=== PATIENT | female | born 1990 | race Two or more races ===

== ENCOUNTER → 2019-07-01 16:40 | Outpatient (CLI) | payer OTHER, SELFPAY | PROVIDERS: Referring Provider Advanced Practice Midwife; Visit Provider Advanced Practice Midwife | DX: Z13.228 Encounter for screening for other metabolic disorders (principal) | CPT/HCPCS: 36415 ==

== ENCOUNTER 2019-10-14 10:30 | Outpatient (RCR) | payer MEDICAID, SELFPAY | END 2019-10-23 23:59 | LOC: DC 10:30 | PROVIDERS: Visit Provider Obstetrics & Gynecology | DX: Z71.3 Dietary counseling and surveillance (principal); O24.410 Gestational diabetes mellitus in pregnancy, diet controlled | CPT/HCPCS: 97802; G0108 ==

== ENCOUNTER 2019-10-29 07:56 | Outpatient (RCR) | payer MEDICAID, SELFPAY | END 2019-11-21 23:59 | LOC: DC 07:56 | PROVIDERS: Visit Provider Obstetrics & Gynecology | DX: Z71.3 Dietary counseling and surveillance (principal); O24.410 Gestational diabetes mellitus in pregnancy, diet controlled ==

== ENCOUNTER 2019-11-08 19:05 | Inpatient (IN) | payer MEDICAID, SELFPAY ==
[2019-11-08 20:01] LABS: Bedside Glucose 166 mg/dL (70-110)
[2019-11-08] MEDS: Lactated Ringers 1,000 ML 50 ML IV (20:05)
[2019-11-08 20:31] LABS: Absolute Lymphocyte Count 1.55 X10^3/uL (0.83-4.51); Absolute Neutrophil Count 8.1 X10^3/uL (2.0-7.7); Basophil# 0.01 X10^3/uL; Basophil% 0.1 % (0-1); Eosinophil# 0.07 X10^3/uL; Eosinophils% 0.7 % (0-5); Hematocrit 34.2 % (37-47); Hemoglobin 11.4 g/dL (12.0-15.0); Lymphocyte # 1.55 X10^3/ul (4.0); Lymphocyte % 14.7 % (19-41); Mean Corp Hgb Conc 33.3 g/dL (32-36); Mean Corpuscular Hgb 28.6 pg (27.0-32.0); Mean Corpuscular Volume 85.9 fL (81-99); Mean Platelet Vol. 8.7 fl (6.2-12.0); Monocyte# 0.77 X10^3/uL; Monocyte% 7.3 % (0-10); NRBC Flagged by Analyzer 0 % (0-5); Neutrophil # 8.06 X10^3/uL (2.7-7.7); Neutrophil % 76.7 % (47-70); Platelet Count 343 K/mm3 (150-450); RBC Distribution Width CV 13.2 % (11.6-14.6); Red Blood Count 3.98 M/mm3 (4.2-5.4); White Blood Count 10.5 K/mm3 (4.4-11.0)
[2019-11-08] MEDS: miSOPROStol 25 MCG TABLET VAGINAL (20:59)
[2019-11-08 21:09] VITALS: BMI 30.9
[2019-11-08 21:21] LABS: Bedside Glucose 135 mg/dL (70-110)
[2019-11-08] MEDS: Dext 5%-0.45% NS 1,000 ML 125 ML IV (21:51)
[2019-11-08] MEDS: 0.9% Saline Lock 10 ML Syringe IV (21:56)
[2019-11-08 22:16] LABS: Bedside Glucose 127 mg/dL (70-110)
[2019-11-08 22:56] LABS: Bedside Glucose 83 mg/dL (70-110)
[2019-11-09] LABS: Bedside Glucose 60 mg/dL (70-110)
[2019-11-09 00:20] LABS: Bedside Glucose 56 mg/dL (70-110)
[2019-11-09 00:46] LABS: Bedside Glucose 64 mg/dL (70-110)
[2019-11-09] MEDS: miSOPROStol 50 MCG TABLET VAGINAL ×2 (01:02→07:52)
[2019-11-09 01:15] LABS: Bedside Glucose 99 mg/dL (70-110)
[2019-11-09 02:06] LABS: Bedside Glucose 102 mg/dL (70-110)
[2019-11-09] MEDS: Oxymetazoline 0.05% 1 SPRAY SPRAY.BTL 2 SPRAY NASAL ×3 (03:48→20:19)
[2019-11-09 06:11] LABS: Bedside Glucose 90 mg/dL (70-110)
[2019-11-09] MEDS: Lactated Ringers 500 ML 999 ML IV ×2 (06:51→20:17)
[2019-11-09 10:00] LABS: Bedside Glucose 72 mg/dL (70-110)
[2019-11-09 12:01] LABS: Bedside Glucose 68 mg/dL (70-110)
--- NOTE | 2019-11-09 12:27 | HP.PCM_ITS ---
- Problem List (1) 37 weeks gestation of Status: Acute (2) Primiparity Status: Acute (3) GDM, class A2 Status: Acute (4) Late care affecting Status: Acute (5) History of depression Status: Acute (6) LIS (generalized anxiety disorder) Status: Acute History Date of Admission: 11/08/19 Final POOJA: 11/27/19 Gestational age: 37 Weeks and 3 Days History of this : This is a 29 year-old, G 2, P 0010, at 37 weeks gestational age who presents for a scheduled induction of labor for poorly controlled gestational diabetes on insulin. Surgical History: Surgical History (Last Updated 11/09/19 @ 12:30 by Ellie Rodriguez DO) History of D&C Z98.890 History of cholecystectomy Z90.49 History of colposcopy Z98.890 Allergies morphine Allergy (Verified 11/08/19 20:33) Hives peanut Allergy (Verified 11/08/19 20:33) Hives pineapple Allergy (Verified 11/08/19 20:33) Hives tomato Allergy (Verified 11/08/19 20:33) Hives Home Medications: Home Medications Albuterol Inhaler [Ventolin Hfa] 11/08/19 Insulin Lispro [Humalog Kwikpen] 6 unit SQ BID 11/08/19 Insulin NPH Hum/Reg Insulin Hm [Humulin 70-30 Vial] 24 unit SQ BID 11/08/19 Magnesium 30 mg PO 11/08/19 Oxymetazoline HCl [Afrin] 30 ml NS 11/08/19 Pantoprazole Sodium [Protonix] 20 mg PO DAILY 11/08/19 Tablet 11/08/19 Smoking Status: Former smoker NST - FHR Rate Baby A Baseline: 135 Variability:: Moderate Accelerations:: 15 x 15 Decelerations:: None NST Reactive:: Yes FHR Category:: Category I Uterine Activity:: Ctx q 2-3 min History Past Pregnancies: Past Pregnancies Delivery Date Name GA/ Weeks Outcome Route Wt Sex Labor Length Anesthesia Delivery Location Provider FOB Labs: GBS positive See [facility] records Expected Infant Delivery Method: Spontaneous Vaginal Review of Systems Constitutional: Denies: Fever HEENT: Denies: Head Aches Cardiovascular: Denies: Chest Pain Respiratory: Denies: Shortness of Breath Gastrointestinal: Denies: Abdominal Pain Psychiatric: Reports: Anxiety, Depression Physical Exam General: Alert, No apparent distress HEENT: Atraumatic Abdomen: Soft, Non Tender, Gravid Extremities:: No edema Neurological: Neuro grossly intact FAMILY PROGRAM SPECIALIST: Normal external genitalia Estimated gestational size: Appropriate for gestational size Presentation: Cephalic Assessment/Plan All Active Problems 37 weeks gestation of (Acute) Primiparity (Acute) GDM, class A2 (Acute) Late care affecting (Acute) History of depression (Acute) LIS (generalized anxiety disorder) (Acute) This is a 29 year-old, G 2, P 0010, at 37 weeks gestational age who presents for scheduled IOL for uncontrolled A2GDM on insulin. - Admit for routine intrapartum care - Diabetic protocol started - GBS positive - Cytotec induction - Epidural prn - Fetus palpates AGA and pelvis adequate. EFW 66% on 3rd trimester growth US
[2019-11-09 13:01] LABS: Bedside Glucose 74 mg/dL (70-110)
[2019-11-09] MEDS: miSOPROStol 50 MCG TABLET PO (14:07)
[2019-11-09] MEDS: Ondansetron 4 MG/2 ML Vial IV (15:15)
[2019-11-09 16:26] LABS: Bedside Glucose 106 mg/dL (70-110)
[2019-11-09 18:21] LABS: Bedside Glucose 81 mg/dL (70-110)
[2019-11-09] MEDS: Lactated Ringers 1,000 ML 50 ML IV (18:31)
[2019-11-09] MEDS: Acetaminophen 325 MG Tablet PO (18:32)
--- NOTE | 2019-11-09 19:20 | PCM.PN.BLA ---
Progress Note External os of cvx 1 cm, internal os unable to be reached due to pt intolerance. Intracervical mckeon placed in usual fashion. Category 1 tracing. Will start pitocin at 1999 with mckeon. Discussed pain control.
--- NOTE | 2019-11-09 19:58 | NURSING ---
spoke with pharmacy and they state to add another order for pitocin in order for it to be properly scanned. this RN leaving other duplicate pitocin order in computer, per pharmacy request.
[2019-11-09] MEDS: Oxytocin 30 units/NS 500 ml 30 UNITS/500 ML IV.SOLN IV (20:19)
[2019-11-09] MEDS: fentaNYL-bupivacaine (epidural) 100 ML BAG EPIDURAL (20:59)
[2019-11-09 22:06] LABS: Bedside Glucose 79 mg/dL (70-110)
[2019-11-10] MEDS: Lactated Ringers 1,000 ML 200 ML IV ×2 (01:27→06:14)
[2019-11-10] MEDS: fentaNYL-bupivacaine (epidural) 100 ML BAG EPIDURAL ×2 (01:27→06:44)
[2019-11-10 01:51] LABS: Bedside Glucose 79 mg/dL (70-110)
[2019-11-10] MEDS: Lactated Ringers 500 ML 999 ML IV (04:26)
[2019-11-10 05:26] LABS: Bedside Glucose 75 mg/dL (70-110)
--- NOTE | 2019-11-10 05:39 | PCM.PN.BLA ---
Progress Note Called for late decelerations. Pitocin gtt turned off. Delayed entry. At bedside to examine pt. Cvx 9.5/100/0. No membranes palpated. FSE placed. FHT now Category 1. Will restart Pit gtt.
[2019-11-10 06:41] LABS: Bedside Glucose 78 mg/dL (70-110)
[2019-11-10 07:41] LABS: Bedside Glucose 75 mg/dL (70-110)
[2019-11-10] MEDS: Oxytocin 30 units/NS 500 ml 30 UNITS/500 ML IV.SOLN 334 UNITS IV (08:21)
--- NOTE | 2019-11-10 08:49 | PCM.OPRPT ---
Vaginal Delivery Maternal Presentation: Medically Indicated Induction Amniotic Fluid Description: Clear Final POOJA: 11/27/19 Gestational age: 37 Weeks and 4 Days Date of Procedure: 11/10/19 Pre-Operative Diagnosis: labor Post-Operative Diagnosis: same Surgery/ Procedure Performed: Spontaneous Vaginal Delivery Type of Anesthesia: Epidural Description of Procedure: A vigorous male was delivered LAY over first-degree perineal laceration. A loose nuchal cord ?1 was easily reduced. The remainder the infant was delivered with maternal pushing and gentle traction only in less than 15 seconds. The Pitocin infusion was initiated for active management of the third stage. The cord was clamped and cut after 1 minute. The was attended to by the waiting nursing staff. The placenta was delivered spontaneously and intact. The cervix and vagina were intact. The first-degree perineal laceration was repaired with 3-0 Vicryl suture in a running standard fashion. Sponge and needle counts were correct. A vaginal sweep was completed by me. Presentation: LAY Placental Delivery Description: Spontaneous Placenta Disposition: [facility] Cord Vessel Description: 3 Vessels Nuchal Cord Compression: Without compression Cord Entanglement: Around neck x 1, loose Drain: Sethi to straight drain Estimated Blood Loss: 300 A gender: Male (1 minute): 9 (5 minute): 9 Episiotomy Description: None Laceration: 1st degree - perineal Medications given after delivery: IV Pitocin Complications: None
[2019-11-10] MEDS: Naproxen 250 MG Tablet 500 MG PO ×2 (09:45→21:37)
[2019-11-10 10:51] LABS: Bedside Glucose 71 mg/dL (70-110)
[2019-11-10 12:10] VITALS: BP 92/50; PULSE 104; RESP 16; TEMP 37.1; O2SAT 96
[2019-11-10] MEDS: 0.9% Saline Lock 10 ML Syringe IV ×2 (12:23→15:04)
[2019-11-10] MEDS: Oxymetazoline 0.05% 1 SPRAY SPRAY.BTL 2 SPRAY NASAL (12:24)
[2019-11-10] MEDS: Cefazolin 2 GM in 0.9% Normal Saline 100 ML IV (13:24)
[2019-11-10] MEDS: Acetaminophen 500 MG Tablet 1000 MG PO (15:24)
[2019-11-10 16:20] VITALS: BP 102/59; PULSE 94; RESP 16; TEMP 36.8; O2SAT 97
[2019-11-10 19:50] VITALS: BP 106/64; PULSE 84; RESP 16; TEMP 37.1
[2019-11-10 23:29] VITALS: BP 113/61; PULSE 89; RESP 16; TEMP 36.6
[2019-11-11] MEDS: Acetaminophen 500 MG Tablet 1000 MG PO ×2 (02:51→13:58)
[2019-11-11] MEDS: guaiFENesin Dm 10 ML UDC PO ×2 (02:51→09:10)
[2019-11-11] MEDS: Sodium Chloride 0.65% 1 SPRAY SPRAY.BTL 2 SPRAY NASAL (02:52)
[2019-11-11 03:54] VITALS: BP 107/63; PULSE 85; RESP 16; TEMP 36.6
[2019-11-11 06:35] LABS: Bedside Glucose 70 mg/dL (70-110)
[2019-11-11] MEDS: Naproxen 250 MG Tablet 500 MG PO (06:35)
[2019-11-11 08:30] VITALS: BP 100/64; PULSE 78; RESP 16; TEMP 36.4; O2SAT 98
--- NOTE | 2019-11-11 08:31 | PN.OBGYN_ITS ---
<DiogoFederica - Last Filed: 11/11/19 08:31> Patient Problems: Active and Suspected Problems 37 weeks gestation of (Acute) Primiparity (Acute) GDM, class A2 (Acute) Late care affecting (Acute) History of depression (Acute) LIS (generalized anxiety disorder) (Acute) Subjective: Pain well controlled. Average lochia. - Physical Exam Vitals/I&O's: Vital Signs Temp Pulse Resp BP Pulse Ox 97.9 F 85 16 107/63 97 11/11/19 03:54 11/11/19 03:54 11/11/19 03:54 11/11/19 03:54 11/10/19 16:20 Oxygen Delivery Method Room Air Weight: 72 kg Body Mass Index (BMI) 30.9 Intake and Output for Last 24 Hours 11/09/19 11/10/19 11/11/19 23:59 23:59 23:59 Intake Total 2426.80 / 2426.80 3957.84 / 3957.84 Output Total 2650 / 2650 350 / 350 Balance 2426.80 / 2426.80 1307.84 / 1307.84 -350 / -350 General: Alert, Cooperative, No apparent distress Laboratory Results 11/10/19 09:15: POC Glucose 71 11/11/19 06:28: POC Glucose 70 Current Medications Acetaminophen (Tylenol) 1,000 mg PO Q8H PRN PRN PRN Reason: Pain Score 1-3/10 Last Admin: 11/11/19 02:51 Dose: 1,000 mg Documented by: Bisacodyl (Dulcolax) 10 mg RECTAL UD PRN PRN Reason: If no BM Dibucaine (Dibucaine) 1 applic TOPICAL TID PRN PRN; Protocol PRN Reason: Discomfort Glucagon () 1 mg IM .X1 PRN PRN Reason: Hypoglycemia Guaifenesin (Robitussin Dm) 10 ml PO Q6H PRN PRN PRN Reason: COUGH Last Admin: 11/11/19 02:51 Dose: 10 ml Documented by: Hydrocortisone (Hytone) 1 applic TOPICAL TID PRN PRN; Protocol PRN Reason: Discomfort Dextrose (Dextrose 10%-Water) 250 mls @ 999 mls/hr IV X1 PRN; Protocol PRN Reason: HYPOGLYCEMIA Methylergonovine Maleate (Methergine) 0.2 mg IM X1 PRN PRN Reason: Excess bleeding/uterine atony Naproxen (Naprosyn) 500 mg PO Q8H PRN PRN PRN Reason: Pain Score 1-3/10 Last Admin: 11/11/19 06:35 Dose: 500 mg Documented by: Ondansetron HCl (Zofran) 4 mg IV Q4H PRN PRN PRN Reason: Nausea Oxymetazoline HCl (Afrin (Bkc)) 2 spray NASAL Q8H PRN PRN PRN Reason: NASAL CONGESTION Last Admin: 11/10/19 12:24 Dose: 2 spray Documented by: Prochlorperazine Edisylate (Compazine Iv) 10 mg IV Q6H PRN PRN PRN Reason: NAUSEA/VOMITING Senna/Docusate Sodium (Senokot-S, Sharmin-Colace) 1 - 2 tablet PO DAILY PRN PRN PRN Reason: Constipation Simethicone (Mylicon) 80 mg PO PCHS PRN PRN Reason: Indigestion/Stomach pain Sodium Chloride () 5 - 15 ml IV UD PRN PRN Reason: SALINE FLUSH Last Admin: 11/10/19 15:04 Dose: 10 ml Documented by: Sodium Chloride ([place] Nasal [place]) 2 spray NASAL Q2H PRN PRN PRN Reason: NASAL DRYNESS Last Admin: 11/11/19 02:52 Dose: 2 spray Documented by: Medical Necessity - Tobacco Use Smoking Status: Former smoker Assessment/Plan All Active Problems 37 weeks gestation of (Acute) Primiparity (Acute) GDM, class A2 (Acute) Late care affecting (Acute) History of depression (Acute) LIS (generalized anxiety disorder) (Acute) PPD day #1 status post vaginal delivery Patient is doing well. Routine care for her . Likely discharge home t omorrow. <Ellie Rodriguez - Last Filed: 11/11/19 08:39> Subjective: Lightheadedness, dizziness, chest pain, shortness of breath, nausea, vomiting, leg pain. - Physical Exam Vitals/I&O's: Vital Signs Temp Pulse Resp BP Pulse Ox 97.9 F 85 16 107/63 97 11/11/19 03:54 11/11/19 03:54 11/11/19 03:54 11/11/19 03:54 11/10/19 16:20 Oxygen Delivery Method Room Air Weight: 158 lb 11.725 oz Body Mass Index (BMI) 30.9 Intake and Output for Last 24 Hours 11/09/19 11/10/19 11/11/19 23:59 23:59 23:59 Intake Total 2426.80 / 2426.80 3957.84 / 3957.84 Output Total 2650 / 2650 350 / 350 Balance 2426.80 / 2426.80 1307.84 / 1307.84 -350 / -350 Abdomen: Soft, Non Tender, - - FF@U-1 Extremities: No edema, No Calf Tenderness Skin: No rashes Neurological: Neuro grossly intact Psych/Mental Status: Normal Affect, Appropriate Laboratory Results 11/10/19 09:15: POC Glucose 71 11/11/19 06:28: POC Glucose 70 Current Medications Acetaminophen (Tylenol) 1,000 mg PO Q8H PRN PRN PRN Reason: Pain Score 1-3 Last Admin: 11/11/19 02:51 Dose: 1,000 mg Documented by: Bisacodyl (Dulcolax) 10 mg RECTAL UD PRN PRN Reason: If no BM Dibucaine (Dibucaine) 1 applic TOPICAL TID PRN PRN; Protocol PRN Reason: Discomfort Glucagon () 1 mg IM .X1 PRN PRN Reason: Hypoglycemia Guaifenesin (Robitussin Dm) 10 ml PO Q6H PRN PRN PRN Reason: COUGH Last Admin: 11/11/19 02:51 Dose: 10 ml Documented by: Hydrocortisone (Hytone) 1 applic TOPICAL TID PRN PRN; Protocol PRN Reason: Discomfort Dextrose (Dextrose 10%-Water) 250 mls @ 999 mls/hr IV X1 PRN; Protocol PRN Reason: HYPOGLYCEMIA Methylergonovine Maleate (Methergine) 0.2 mg IM X1 PRN PRN Reason: Excess bleeding/uterine atony Naproxen (Naprosyn) 500 mg PO Q8H PRN PRN PRN Reason: Pain Score 1-3/10 Last Admin: 11/11/19 06:35 Dose: 500 mg Documented by: Ondansetron HCl (Zofran) 4 mg IV Q4H PRN PRN PRN Reason: Nausea Oxymetazoline HCl (Afrin (Bkc)) 2 spray NASAL Q8H PRN PRN PRN Reason: NASAL CONGESTION Last Admin: 11/10/19 12:24 Dose: 2 spray Documented by: Prochlorperazine Edisylate (Compazine Iv) 10 mg IV Q6H PRN PRN PRN Reason: NAUSEA/VOMITING Senna/Docusate Sodium (Senokot-S, Sharmin-Colace) 1 - 2 tablet PO DAILY PRN PRN PRN Reason: Constipation Simethicone (Mylicon) 80 mg PO PCHS PRN PRN Reason: Indigestion/Stomach pain Sodium Chloride () 5 - 15 ml IV UD PRN PRN Reason: SALINE FLUSH Last Admin: 11/10/19 15:04 Dose: 10 ml Documented by: Sodium Chloride ([place] Nasal [place]) 2 spray NASAL Q2H PRN PRN PRN Reason: NASAL DRYNESS Last Admin: 11/11/19 02:52 Dose: 2 spray Documented by:
--- NOTE | 2019-11-11 13:45 | CASEMGMT ---
Social Work Labor and Delivery Unit Consult received due to maternal history of trauma. Chart reviewed and noted that mother of baby (MOB) also has history of depression, anxiety, late care and is a first time mother. Noted that father of baby (FOB) with history of substance use issues, reportedly in recovery. Met with MOB and FOB in room and introduced to self, that meets with many families on the unit, goes over resources and addresses mood and anxiety issues. Did not address MOB's trauma history in front of the FOB, as this short story writer uncertain what MOB has shared with the FOB previously. Talked with MOB and FOB together and gathered some basic information for assessment, and just getting to the point of addressing mood and anxiety issue when a visitor arrived and came into the room with a gift. MOB appeared as though she wanted to visit with this person, and alluded that had been on the phone with this person when this short story writer was arriving to the room. This short story writer agreed to step out to allow for a visit. Educated MOB that this short story writer would be back later today or tomorrow morning. MOB voiced agreement. During time that child welfare social worker in the room, which was about [id number] MOB as pleasant and cooperative, but did cry intermittently. MOB cried when talking about disappointment that baby is not feeding as well today as had yesterday. Supportive listening offered. Observed that FOB would rub the MOB's back when MOB started to cry. Observed FOB to hold the baby, and was gentle. MOB also held baby, was gentle, and attempted to cup feed the baby at one point. Plan: Will meet with MOB again today if time allows, otherwise will meet with MOB on 11.12.2019. MOB is aware and voices agreement with plan. -DUNG Pedroza, CASHIER AND SALESPERSON
[2019-11-11 14:00] VITALS: BP 109/65; PULSE 97; RESP 16; TEMP 36.4
[2019-11-11 20:50] VITALS: BP 107/72; PULSE 76; RESP 16; TEMP 36.7
[2019-11-11] MEDS: guaiFENesin 600 MG Tablet PO (21:01)
[2019-11-12] MEDS: Naproxen 250 MG Tablet 500 MG PO ×2 (00:30→09:03)
[2019-11-12 02:45] VITALS: BP 113/65; PULSE 83; RESP 16; TEMP 36.5
[2019-11-12 08:17] VITALS: BP 114/70; PULSE 81; RESP 16; TEMP 36.9
--- NOTE | 2019-11-12 08:35 | PCM.PN.OB ---
Patient Problems: Active and Suspected Problems 37 weeks gestation of (Acute) Primiparity (Acute) GDM, class A2 (Acute) Late care affecting (Acute) History of depression (Acute) LIS (generalized anxiety disorder) (Acute) Subjective: No complaints - Physical Exam Vitals/I&O's: Vital Signs Temp Pulse Resp BP Pulse Ox 98.4 F 81 16 114/70 98 11/12/19 08:17 11/12/19 08:17 11/12/19 08:17 11/12/19 08:17 11/11/19 08:30 Oxygen Delivery Method Room Air Weight: 158 lb 11.725 oz Body Mass Index (BMI) 30.9 Intake and Output for Last 24 Hours 11/10/19 11/11/19 11/12/19 23:59 23:59 23:59 Intake Total 3957.84 / 3957.84 Output Total 2650 / 2650 350 / 350 Balance 1307.84 / 1307.84 -350 / -350 General: Alert, Oriented x3 Abdomen: Soft, Non Tender, Non-Distended - ff mid & below umb Extremities: No Calf Tenderness Current Medications Acetaminophen (Tylenol) 1,000 mg PO Q8H PRN PRN PRN Reason: Pain Score 1-3/10 Last Admin: 11/11/19 13:58 Dose: 1,000 mg Documented by: Bisacodyl (Dulcolax) 10 mg RECTAL UD PRN PRN Reason: If no BM Dibucaine (Dibucaine) 1 applic TOPICAL TID PRN PRN; Protocol PRN Reason: Discomfort Glucagon () 1 mg IM .X1 PRN PRN Reason: Hypoglycemia Guaifenesin (Robitussin Dm) 10 ml PO Q6H PRN PRN PRN Reason: COUGH Last Admin: 11/11/19 09:10 Dose: 10 ml Documented by: Guaifenesin (Mucinex) 600 mg PO BID GALLO Last Admin: 11/11/19 21:01 Dose: 600 mg Documented by: Hydrocortisone (Hytone) 1 applic TOPICAL TID PRN PRN; Protocol PRN Reason: Discomfort Dextrose (Dextrose 10%-Water) 250 mls @ 999 mls/hr IV X1 PRN; Protocol PRN Reason: HYPOGLYCEMIA Methylergonovine Maleate (Methergine) 0.2 mg IM X1 PRN PRN Reason: Excess bleeding/uterine atony Naproxen (Naprosyn) 500 mg PO Q8H PRN PRN PRN Reason: Pain Score 1-3/10 Last Admin: 11/12/19 00:30 Dose: 500 mg Documented by: Ondansetron HCl (Zofran) 4 mg IV Q4H PRN PRN PRN Reason: Nausea Oxymetazoline HCl (Afrin (Bkc)) 2 spray NASAL Q8H PRN PRN PRN Reason: NASAL CONGESTION Last Admin: 11/10/19 12:24 Dose: 2 spray Documented by: Prochlorperazine Edisylate (Compazine Iv) 10 mg IV Q6H PRN PRN PRN Reason: NAUSEA/VOMITING Senna/Docusate Sodium (Senokot-S, Sharmin-Colace) 1 - 2 tablet PO DAILY PRN PRN PRN Reason: Constipation Simethicone (Mylicon) 80 mg PO PCHS PRN PRN Reason: Indigestion/Stomach pain Sodium Chloride () 5 - 15 ml IV UD PRN PRN Reason: SALINE FLUSH Last Admin: 11/10/19 15:04 Dose: 10 ml Documented by: Sodium Chloride ([place] Nasal [place]) 2 spray NASAL Q2H PRN PRN PRN Reason: NASAL DRYNESS Last Admin: 11/11/19 02:52 Dose: 2 spray Documented by: Medical Necessity - Tobacco Use Smoking Status: Former smoker Assessment/Plan All Active Problems 37 weeks gestation of (Acute) Primiparity (Acute) GDM, class A2 (Acute) Late care affecting (Acute) History of depression (Acute) LIS (generalized anxiety disorder) (Acute) PPD#2 D/c home GDM - BS normal off insulin. Patient to continue checking BS 1-2 times per day & call with elevated BS.
--- NOTE | 2019-11-12 08:37 | DCINST_ITS ---
Discharge Diet: No Restrictions Discharge Activity: May Drive, May Shower May resume sexual activity in: 6 weeks Weight Bearing Status: Weight bearing as tolerated Additional Instructions: If you experience any of the following, contact your healthcare provider. * Bleeding that soaks a pad every hour for 2 hours * Fever 100.4 or higher * Unrelieved incision or abdominal pain * Swelling, redness, discharge or bleeding from your incision or episiotomy site * Your incision begins to separate * Problems urinating (including inability to urinate or burning while urinating). * Visual changes * Severe headache * Flu-like symptoms * Pain or redness in one of both of your breasts * Pain, warmth, tenderness or swelling in your legs, especially the calf area * Frequent nausea and vomiting * Symptoms of depression or anxiety If you experience any of the following, call 911 or go to the nearest Emergency Room. * Chest pain * Problems breathing * Seizure activity * Partial or complete paralysis of a body part, slurred speech, weakness or drooping of the face, or a sudden inability to walk or hold your balance * Please check your blood glucose levels after biggest meal of the day. Also c heck fasting glucose at least every other day. Call the office if levels are elevated. Anabell bring glucose log to 2 week check. Allergies/Adverse Reactions: Allergies morphine Allergy (Verified 11/08/19 20:33) Hives peanut Allergy (Verified 11/08/19 20:33) Hives pineapple Allergy (Verified 11/08/19 20:33) Hives tomato Allergy (Verified 11/08/19 20:33) Hives Medications to take at Discharge Albuterol Inhaler [Ventolin Hfa] 11/08/19 Magnesium 30 mg PO 11/08/19 Pantoprazole Sodium [Protonix] 20 mg PO DAILY 11/08/19 Tablet 11/08/19 Acetaminophen [Tylenol] 1,000 mg PO Q8H PRN PRN tablet 11/12/19 Naproxen [Naprosyn] 500 mg PO Q8H PRN PRN tablet 11/12/19 Primary Care Physician: Care Physician,No Primary [Primary Care Provider] - Test Results: Test results from this visit will be discussed in further detail at your follow- up appointment, if applicable.
--- NOTE | 2019-11-12 08:37 | PCM.DCVAG ---
Discharge Diet: No Restrictions Discharge Activity: May Drive, May Shower May resume sexual activity in: 6 weeks Weight Bearing Status: Weight bearing as tolerated Additional Instructions: If you experience any of the following, contact your healthcare provider. Bleeding that soaks a pad every hour for 2 hours Fever 100.4 or higher Unrelieved incision or abdominal pain Swelling, redness, discharge or bleeding from your incision or episiotomy site Your incision begins to separate Problems urinating (including inability to urinate or burning while urinating). Visual changes Severe headache Flu-like symptoms Pain or redness in one of both of your breasts Pain, warmth, tenderness or swelling in your legs, especially the calf area Frequent nausea and vomiting Symptoms of depression or anxiety If you experience any of the following, call 911 or go to the nearest Emergency Room. Chest pain Problems breathing Seizure activity Partial or complete paralysis of a body part, slurred speech, weakness or drooping of the face, or a sudden inability to walk or hold your balance Please check your blood glucose levels after biggest meal of the day. Also check fasting glucose at least every other day. Call the office if levels are elevated. Anabell bring glucose log to 2 week check. Allergies/Adverse Reactions: Allergies morphine Allergy (Verified 11/08/19 20:33) Hives peanut Allergy (Verified 11/08/19 20:33) Hives pineapple Allergy (Verified 11/08/19 20:33) Hives tomato Allergy (Verified 11/08/19 20:33) Hives Medications to take at Discharge Albuterol Inhaler [Ventolin Hfa] 11/08/19 Magnesium 30 mg PO 11/08/19 Pantoprazole Sodium [Protonix] 20 mg PO DAILY 11/08/19 Tablet 11/08/19 Acetaminophen [Tylenol] 1,000 mg PO Q8H PRN PRN tablet 11/12/19 Naproxen [Naprosyn] 500 mg PO Q8H PRN PRN tablet 11/12/19 Primary Care Physician: Care Physician,No Primary [Primary Care Provider] - Test Results: Test results from this visit will be discussed in further detail at your follow-up appointment, if applicable.
[2019-11-12 08:45] VITALS: BP 114/70; PULSE 81; RESP 16; TEMP 36.9
[2019-11-12] MEDS: guaiFENesin 600 MG Tablet PO (09:04)
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
[2019-11-12 14:00] VITALS: BP 115/69; PULSE 81; RESP 16; TEMP 36.7
--- NOTE | 2019-11-20 18:58 | NURSING ---
Follow Up phone call done, mother denies needs or questions and states she was satisfied with her care
== END 2019-11-12 14:25 | disposition home or self-care (01) | DRG 560 ==
PROVIDERS: Obstetrics & Gynecology; Admitting Provider Obstetrics & Gynecology; Visit Provider Obstetrics & Gynecology
DX: O69.81X0 Labor and delivery complicated by cord around neck, without compression, not applicable or unspecified (principal); O70.0 First degree perineal laceration during delivery; Z37.0 Single live birth; Z3A.37 37 weeks gestation of pregnancy; O24.424 Gestational diabetes mellitus in childbirth, insulin controlled; O99.824 Streptococcus B carrier state complicating childbirth; Z87.891 Personal history of nicotine dependence; O76 Abnormality in fetal heart rate and rhythm complicating labor and delivery
CPT/HCPCS: 59025; 59050; 82962; 85025; 86850; 86900; 86901; 99218; J7120; A4216; G0378; J2405; J7799